=== PATIENT | male | born 1965 | race Two or more races ===

== ENCOUNTER 2024-09-06 10:14 | Outpatient (CLI) | payer OTHER | END 2024-09-06 10:15 | disposition home or self-care (01) | LOC: NUCLEAR 10:14 | PROVIDERS: ATTEND Internal Medicine Sports Medicine | DX: C73 Malignant neoplasm of thyroid gland (principal) ==

== ENCOUNTER 2024-09-13 11:16 | Outpatient (CLI) | payer OTHER | END 2024-09-13 11:18 | disposition home or self-care (01) | LOC: NUCLEAR 11:16 | PROVIDERS: ATTEND Internal Medicine Sports Medicine | DX: C73 Malignant neoplasm of thyroid gland (principal) ==